=== PATIENT | female | born 1995 | race American Indian/Alaskan Native ===

== ENCOUNTER 2017-01-10 11:50 | Emergency (ER) | payer SELFPAY ==
[2017-01-10 12:29] VITALS: BP 126/75
[2017-01-10 14:06] LABS: Bilirubin,Urine NEG (Negative); Blood,Urine SM (Negative); Ketones,Urine NEG (Negative); Leukocyte Esterase,Urine MOD (Negative); Mucus,Urine FEW /HPF; Nitrite,Urine NEG (Negative); Protein,Urine <15 mg/dL mg/dL (Negative); Urobilinogen,Urine < 2.0 mg/dL (<2.0)
--- NOTE | 2017-01-10 14:11 | Emergency Department Report ---
ED Female HPI - General Chief complaint: Urogenital-Female Stated complaint: POSS UTI Time Seen by Provider: 01/10/17 13:44 Source: patient Mode of arrival: Ambulatory Limitations: No Limitations - History of Present Illness Initial comments: This is a 21-year-old female nontoxic, well nourished in appearance, no acute signs of distress presents to the ED complaining of urinary frequency and vaginal discharge. Patient describes vaginal discharge as white/clear. Patient denies any foul order. Patient denies any dysuria, polyuria, hematuria , nausea, vomiting, abdominal pain, pelvic pain, back pain, chest pain, shortness of breath, fever, chills, stiff neck or headache. Patient states she has had unprotected sex last week and then developed a vaginal discharge and is concerned about STD and wanted to be treated empirically. Patient denies any allergies or past medical history. MD Complaint: vaginal discharge, other (urinary frequency) -: Gradual Radiation: non-radiating Severity: mild Severity scale (0 -10): 0 Consistency: constant Worsens with: none Are you Now?: No Last Menstrual Period: 01/02/17 EDC: 10/09/17 Associated Symptoms: vaginal discharge. denies: vaginal bleeding, abdominal pain, nausea/vomiting, fever/chills, headaches, loss of appetite, dysuria, hematuria, rash, seizure, shortness of breath, syncope, weakness - Related Data Sexually active: Yes Previous Rx's Medication Instructions Recorded Last Taken Type Nitrofurantoin Monohyd/M-Cryst 100 mg PO BID #14 capsule 01/10/17 Unknown Rx [Macrobid 100 mg Capsule] metroNIDAZOLE [Flagyl] 500 mg PO Q12HR #14 tab 01/10/17 Unknown Rx Allergies Allergy/AdvReac Type Severity Reaction Status Date / Time No Known Allergies Allergy Unverified 01/10/17 12:29 ED Review of Systems ROS: Stated complaint: POSS UTI Other details as noted in HPI Constitutional: denies: chills, fever Eyes: denies: eye pain, eye discharge, vision change ENT: denies: ear pain, throat pain Respiratory: denies: cough, shortness of breath, wheezing Cardiovascular: denies: chest pain, palpitations Endocrine: no symptoms reported Gastrointestinal: denies: abdominal pain, nausea, diarrhea Genitourinary: frequency. denies: urgency, dysuria, discharge Musculoskeletal: denies: back pain, joint swelling, arthralgia Skin: denies: rash, lesions Neurological: denies: headache, weakness, paresthesias Psychiatric: denies: anxiety, depression Hematological/Lymphatic: denies: easy bleeding, easy bruising ED Past Medical Hx - Past Medical History Previous Medical History?: No - Surgical History Additional Surgical History: x2 - Social History Smoking Status: Never Smoker Substance Use Type: None - Medications Home Medications: Home Medications Medication Instructions Recorded Confirmed Last Taken Type Nitrofurantoin Monohyd/M-Cryst 100 mg PO BID #14 capsule 01/10/17 Unknown Rx [Macrobid 100 mg Capsule] metroNIDAZOLE [Flagyl] 500 mg PO Q12HR #14 tab 01/10/17 Unknown Rx ED Physical Exam - General Limitations: No Limitations General appearance: alert, in no apparent distress - Head Head exam: Present: atraumatic, normocephalic, normal inspection - Eye Eye exam: Present: normal appearance, PERRL, EOMI. Absent: scleral icterus, conjunctival injection, nystagmus, periorbital swelling, periorbital tenderness Pupils: Present: normal accommodation - ENT ENT exam: Present: normal exam, normal orophraynx, mucous membranes moist, TM's normal bilaterally, normal external ear exam - Neck Neck exam: Present: normal inspection, full ROM. Absent: tenderness, meningismus, lymphadenopathy, thyromegaly - Respiratory Respiratory exam: Present: normal lung sounds bilaterally. Absent: respiratory distress, wheezes, rales, rhonchi, stridor, chest wall tenderness, accessory muscle use, decreased breath sounds, prolonged expiratory - Cardiovascular Cardiovascular Exam: Present: regular rate, normal rhythm, normal heart sounds. Absent: bradycardia, tachycardia, irregular rhythm, systolic murmur, diastolic murmur, rubs, gallop - GI/Abdominal GI/Abdominal exam: Present: soft, normal bowel sounds. Absent: distended, tenderness, guarding, rebound, rigid, diminished bowel sounds - Rectal Rectal exam: Present: deferred - External exam: Present: normal external exam, other (assisted living home director Sintia deburrer machine present during exam). Absent: erythema, swelling, lesions, lacerations, ecchymosis, bleeding Speculum exam: Present: normal speculum exam, cervical discharge (white thick with no foul odor present), other (assisted living home director Sintia deburrer machine present during exam). Absent: erythema, vaginal discharge, vaginal bleeding, foreign body, tissue, laceration Bi-manual exam: Present: normal bi-manual exam, other (assisted living home director Sintia deburrer machine present during exam). Absent: cervical motion tendernes, adnexal tenderness, adnexal mass, uterine enlargement, uterine tenderness - Extremities Exam Extremities exam: Present: normal inspection, full ROM, normal capillary refill. Absent: tenderness, pedal edema, joint swelling, calf tenderness - Back Exam Back exam: Present: normal inspection, full ROM. Absent: tenderness, CVA tenderness (R), CVA tenderness (L), muscle spasm, paraspinal tenderness, vertebral tenderness, rash noted - Neurological Exam Neurological exam: Present: alert, oriented X3, CN II-XII intact, normal gait, reflexes normal - Psychiatric Psychiatric exam: Present: normal affect, normal mood - Skin Skin exam: Present: warm, dry, intact, normal color. Absent: rash ED Course Vital Signs 01/10/17 12:24 Temperature 98.3 F Pulse Rate 81 Respiratory 18 Rate Blood Pressure 126/75 O2 Sat by Pulse 98 Oximetry - Reevaluation(s) Reevaluation #1: 01/10/17 14:16 Patient is speaking in full sentences with no signs of distress noted. ED Medical Decision Making - Medical Decision Making This is a 21-year-old female that presents with UTI, bacterial vaginosis, and concerned about STD. Patient is stable and was evaluated by myself. Estimating Manager present during exam. Patient was instructed to return in 3 days for gonorrhea/ Chlamydia results. Patient received Rocephin and azithromycin in the ED this patient wanted empirical treatment. The patient be discharged with Macrobid and Flagyl. Patient was instructed to follow-up with a primary care doctor in 3- 5 days or if symptoms worsen and continue return to emergency room as soon as possible possible. Patient is hemodynamically stable with stable vital signs. Patient states he is feeling better. At time time of discharge, the patient does not seem toxic or ill in appearance. No acute signs of distress noted. Patient agrees to discharge treatment plan of care. No further questions noted by the patient. Patient was also instructed not to consume any alcohol while taking antibiotics. Critical care attestation.: If time is entered above; I have spent that time in minutes in the direct care of this critically ill patient, excluding procedure time. ED Disposition Clinical Impression: BV (bacterial vaginosis), Possible exposure to STD Urinary tract infection Qualifiers: Urinary tract infection type: site unspecified Hematuria presence: without hematuria Qualified Code(s): N39.0 - Urinary tract infection, site not specified Disposition: - TO HOME OR SELFCARE Is pt being admited?: No Does the pt Need Aspirin: No Condition: Stable Instructions: Bacterial Vaginosis (ED), Urinary Tract Infection in Women (ED), Nitrofurantoin Combination (By mouth), Metronidazole (By mouth), Safe Sex (ED) Additional Instructions: Follow-up with a primary care doctor in 3-5 days or if symptoms worsen and continue return to emergency room as soon as possible possible. Do not consume any alcohol while taking antibiotics especially Flagyl. Return in 3 days to medical records to obtain the results of gonorrhea and chlamydia. Prescriptions: metroNIDAZOLE [Flagyl] 500 mg PO Q12HR #14 tab Nitrofurantoin Monohyd/M-Cryst [Macrobid 100 mg Capsule] 100 mg PO BID #14 capsule Referrals: PRIMARY CAREMD [Primary Care Provider] - 3-5 Days RUBEN MOROCHO MD [Staff Physician] - 3-5 Days [facility] [Outside] - 3-[address] [facility] [Outside] - 3-5 Days Forms: STI Treatment and Prevention, Work/School Release Form(ED)
[2017-01-10] MEDS ORDERED: ROCEPHIN IM ONE (15:38)
[2017-01-10] MEDS ORDERED: XYLOCAINE 1% MPF 5 mL INFILTRATI ONE (15:38)
[2017-01-10] MEDS ORDERED: ZITHROMAX PO ONE (15:38)
== END 2017-01-10 16:36 | disposition home or self-care (01) ==
LOC: ED 11:50
DX: N39.0 Urinary tract infection, site not specified (principal); N76.0 Acute vaginitis
CPT/HCPCS: 81001; 81025; 87116; 87210; 87430; 87591; 96372; 99284; J0696

== ENCOUNTER 2017-06-07 08:10 | Emergency (ER) | payer MEDICAID ==
--- NOTE | 2017-06-07 10:27 | Emergency Department Report ---
ED Female HPI - General Chief complaint: Medical Clearance Stated complaint: UTI Time Seen by Provider: 06/07/17 10:09 Source: patient Mode of arrival: Ambulatory Limitations: No Limitations - History of Present Illness Initial comments: This is a 22-year-old female nontoxic, well nourished in appearance, no acute signs of distress presents to the ED with c/o of vaginal discharge x1 week. Patient stated she had a sexual intercourse 2 weeks ago unprotected and developed these symptoms. Patient describes vaginal discharge as yellow with foul odor. Patient denies any pelvic pain or back pain. Patient also stated has dysuria and polyuria with foul urine odor. Patient stated she is concerned about STD and wants to be tested and treated empirically. Patient denies any chest pain, shortness of breath, fever, chills, nausea, vomiting, abdominal pain. Patient denies any allergies or significant past medical history. MD Complaint: vaginal discharge, dysuria, possible STD -: week(s) (1) Radiation: non-radiating Severity: mild Severity scale (0 -10): 8 Quality: burning Consistency: constant Improves with: none Worsens with: urination Are you Now?: No Last Menstrual Period: 01/02/18 EDC: 10/09/18 Associated Symptoms: vaginal discharge, dysuria. denies: vaginal bleeding, abdominal pain, nausea/vomiting, fever/chills, headaches, loss of appetite, hematuria, rash, seizure, shortness of breath, syncope, weakness - Related Data Sexually active: Yes Previous Rx's Medication Instructions Recorded Last Taken Type Nitrofurantoin Monohyd/M-Cryst 100 mg PO BID #14 capsule 01/10/17 Unknown Rx [Macrobid 100 mg Capsule] metroNIDAZOLE [Flagyl] 500 mg PO Q12HR #14 tab 01/10/17 Unknown Rx Fluconazole [Diflucan TAB] 150 mg PO ONCE #2 tablet 06/07/17 Unknown Rx Sulfamethoxazole/Trimethoprim 1 each PO BID #14 tablet 06/07/17 Unknown Rx [Bactrim DS TAB] metroNIDAZOLE [Flagyl] 500 mg PO Q12HR #14 tab 06/07/17 Unknown Rx Allergies Allergy/AdvReac Type Severity Reaction Status Date / Time No Known Allergies Allergy Unverified 01/10/17 12:29 ED Review of Systems ROS: Stated complaint: UTI Other details as noted in HPI Constitutional: denies: chills, fever Eyes: denies: eye pain, eye discharge, vision change ENT: denies: ear pain, throat pain Respiratory: denies: cough, shortness of breath, wheezing Cardiovascular: denies: chest pain, palpitations Endocrine: no symptoms reported Gastrointestinal: denies: abdominal pain, nausea, diarrhea Genitourinary: urgency, dysuria, frequency, discharge Musculoskeletal: denies: back pain, joint swelling, arthralgia Skin: denies: rash, lesions Neurological: denies: headache, weakness, paresthesias Psychiatric: denies: anxiety, depression Hematological/Lymphatic: denies: easy bleeding, easy bruising ED Past Medical Hx - Past Medical History Additional medical history: c-sctions x2 - Surgical History Additional Surgical History: x2 - Social History Smoking Status: Never Smoker Substance Use Type: None - Medications Home Medications: Home Medications Medication Instructions Recorded Confirmed Last Taken Type Nitrofurantoin Monohyd/M-Cryst 100 mg PO BID #14 capsule 01/10/17 Unknown Rx [Macrobid 100 mg Capsule] metroNIDAZOLE [Flagyl] 500 mg PO Q12HR #14 tab 01/10/17 Unknown Rx Fluconazole [Diflucan TAB] 150 mg PO ONCE #2 tablet 06/07/17 Unknown Rx Sulfamethoxazole/Trimethoprim 1 each PO BID #14 tablet 06/07/17 Unknown Rx [Bactrim DS TAB] metroNIDAZOLE [Flagyl] 500 mg PO Q12HR #14 tab 06/07/17 Unknown Rx ED Physical Exam - General Limitations: No Limitations General appearance: alert, in no apparent distress - Head Head exam: Present: atraumatic, normocephalic - Eye Eye exam: Present: normal appearance, PERRL, EOMI Pupils: Present: normal accommodation - ENT ENT exam: Present: normal exam, normal orophraynx, mucous membranes moist, TM's normal bilaterally, normal external ear exam - Neck Neck exam: Present: normal inspection, full ROM. Absent: tenderness, meningismus, lymphadenopathy, thyromegaly - Respiratory Respiratory exam: Present: normal lung sounds bilaterally. Absent: respiratory distress, wheezes, rales, rhonchi, stridor, chest wall tenderness, accessory muscle use, decreased breath sounds, prolonged expiratory - Cardiovascular Cardiovascular Exam: Present: regular rate, normal rhythm, normal heart sounds. Absent: irregular rhythm, systolic murmur, diastolic murmur, rubs, gallop - GI/Abdominal GI/Abdominal exam: Present: soft, normal bowel sounds. Absent: distended, tenderness, guarding, rebound, rigid, diminished bowel sounds - Rectal Rectal exam: Present: deferred - External exam: Present: normal external exam, other (marlened Brian MORRIS present during exam). Absent: erythema, swelling, lesions, lacerations, ecchymosis, bleeding Speculum exam: Present: normal speculum exam, cervical discharge (white/green with foul odor), other (chaperoned Brian MORRIS present during exam). Absent: erythema, vaginal discharge, vaginal bleeding, foreign body, tissue, laceration Bi-manual exam: Present: normal bi-manual exam, other (chaperoned Brian MORRIS present during exam). Absent: cervical motion tendernes, adnexal tenderness, adnexal mass, uterine enlargement, uterine tenderness - Extremities Exam Extremities exam: Present: normal inspection, full ROM, normal capillary refill. Absent: tenderness, pedal edema, joint swelling, calf tenderness - Back Exam Back exam: Present: normal inspection, full ROM. Absent: tenderness, CVA tenderness (R), CVA tenderness (L), muscle spasm, paraspinal tenderness, vertebral tenderness, rash noted - Neurological Exam Neurological exam: Present: alert, oriented X3, CN II-XII intact, normal gait, reflexes normal - Psychiatric Psychiatric exam: Present: normal affect, normal mood - Skin Skin exam: Present: warm, dry, intact, normal color. Absent: rash ED Course Vital Signs 06/07/17 09:03 Temperature 97.8 F Pulse Rate 91 H Blood Pressure 107/67 O2 Sat by Pulse 97 Oximetry - Reevaluation(s) Reevaluation #1: 06/07/17 10:31 Patient is speaking in full sentences with no signs of distress noted. ED Medical Decision Making - Medical Decision Making This is a 22-year-old female that presents with possible STD, UTI, BV, and yeast. Patient is stable and was exained by me. UA obtained. Wet prep obtained. GC pending. Patient was instructed to return in 3-5 days for GC results. Patient received Rocephine and Azithromycin in the ED as she stated she wants to be treated empirically. Patient was also instructed to Follow-up with a primary care doctor in 3-5 days or if symptoms worsen and continue return to emergency room as soon as possible. At time of discharge, the patient does not seem toxic or ill in appearance. No acute signs of distress noted. Patient agrees to discharge treatment plan of care. No further questions noted by the patient. Critical care attestation.: If time is entered above; I have spent that time in minutes in the direct care of this critically ill patient, excluding procedure time. ED Disposition Clinical Impression: Possible exposure to STD, Vaginal yeast infection, Bacterial vaginosis UTI (urinary tract infection) Qualifiers: Urinary tract infection type: site unspecified Hematuria presence: with hematuria Qualified Code(s): N39.0 - Urinary tract infection, site not specified ; R31.9 - Hematuria, unspecified Disposition: TO HOME OR SELFCARE Is pt being admited?: No Does the pt Need Aspirin: No Condition: Stable Instructions: Safe Sex (ED), Bacterial Vaginosis (ED), Urinary Tract Infection in Children (ED), Vulvovaginal Candidiasis (ED) Additional Instructions: Follow-up with a primary care doctor in 3-5 days or if symptoms worsen and continue return to emergency room as soon as possible. Return in 3 days to obtain results of gonorrhea chlamydia. Do not consume any alcohol while taking antibiotics. Prescriptions: Fluconazole [Diflucan TAB] 150 mg PO ONCE #2 tablet metroNIDAZOLE [Flagyl] 500 mg PO Q12HR #14 tab Sulfamethoxazole/Trimethoprim [Bactrim DS TAB] 1 each PO BID #14 tablet Referrals: PRIMARY CAREMD [Primary Care Provider] - 3-5 Days ARJUN JORDAN MD [Staff Physician] - 3-5 Days [facility] [Outside] - 3-5 Days [facility] [Outside] - 3-5 Days Forms: Work/School Release Form(ED), STI Treatment and Prevention
[2017-06-07 12:08] LABS: Bacteria,Urine 3+ /HPF (Negative); Bilirubin,Urine NEG (Negative); Blood,Urine SM (Negative); Color,Urine Yellow (Yellow); Mucus,Urine FEW /HPF; Urobilinogen,Urine < 2.0 mg/dL (<2.0)
[2017-06-07] MEDS ORDERED: ROCEPHIN IM ONE (12:43)
[2017-06-07] MEDS ORDERED: ZITHROMAX PO ONE (12:43)
[2017-06-07] MEDS ORDERED: XYLOCAINE 1% MPF 5 mL INFILTRATI ONE (12:43)
[2017-06-07 13:00] LABS: HCG Qualitative,Urine Negative (Negative)
[2017-06-07 13:27] VITALS: BP 108/66
== END 2017-06-07 13:26 | disposition home or self-care (01) ==
LOC: ED 08:10
DX: N39.0 Urinary tract infection, site not specified (principal); N76.0 Acute vaginitis; B37.3 Candidiasis of vulva and vagina
CPT/HCPCS: 81001; 81025; 87086; 87210; 87591; 96372; 99284; J0696

== ENCOUNTER 2017-08-19 06:26 | Emergency (ER) | payer MEDICAID ==
[2017-08-19 06:59] VITALS: BP 117/68
--- NOTE | 2017-08-19 07:50 | Emergency Department Report ---
ED Female HPI - General Chief complaint: Urogenital-Female Stated complaint: VAG DISCOMFORT Time Seen by Provider: 08/19/17 07:30 Source: patient Mode of arrival: Ambulatory Limitations: No Limitations - History of Present Illness Initial comments: 22-year-old female past medical history STDs presents with complaint of one week of dysuria and vaginal discharge. States she also has increased urinary frequency. Patient is concerned she may have been exposed to chlamydia. Awake alert and oriented 3 denies fevers chills nausea or vomiting. States she has whitish vaginal discharge. MD Complaint: vaginal discharge, dysuria, possible STD Onset/Timin -: week(s) Are you Now?: No Last Menstrual Period: 07/07/17 EDC: 04/13/18 Associated Symptoms: vaginal discharge - Related Data Sexually active: Yes Previous Rx's Medication Instructions Recorded Last Taken Type Nitrofurantoin Monohyd/M-Cryst 100 mg PO BID #14 capsule 01/10/17 Unknown Rx [Macrobid 100 mg Capsule] metroNIDAZOLE [Flagyl] 500 mg PO Q12HR #14 tab 01/10/17 Unknown Rx Fluconazole [Diflucan TAB] 150 mg PO ONCE #2 tablet 06/07/17 Unknown Rx Sulfamethoxazole/Trimethoprim 1 each PO BID #14 tablet 06/07/17 Unknown Rx [Bactrim DS TAB] metroNIDAZOLE [Flagyl] 500 mg PO Q12HR #14 tab 06/07/17 Unknown Rx Sulfamethoxazole/Trimethoprim 1 each PO BID #6 tablet 08/19/17 Unknown Rx [Bactrim DS TAB] Allergies Allergy/AdvReac Type Severity Reaction Status Date / Time No Known Allergies Allergy Unverified 01/10/17 12:29 ED Review of Systems ROS: Stated complaint: VAG DISCOMFORT Other details as noted in HPI Constitutional: denies: chills, fever Eyes: denies: eye pain, eye discharge, vision change ENT: denies: ear pain, throat pain Respiratory: denies: cough, shortness of breath, wheezing Cardiovascular: denies: chest pain, palpitations Endocrine: no symptoms reported Gastrointestinal: denies: abdominal pain, nausea, diarrhea Genitourinary: as per HPI, frequency, discharge. denies: urgency, dysuria Musculoskeletal: denies: back pain, joint swelling, arthralgia Skin: denies: rash, lesions Neurological: denies: headache, weakness, paresthesias Psychiatric: denies: anxiety, depression Hematological/Lymphatic: denies: easy bleeding, easy bruising ED Past Medical Hx - Past Medical History Previous Medical History?: Yes Additional medical history: c-sctions x2 - Surgical History Past Surgical History?: Yes Additional Surgical History: x2 - Social History Smoking Status: Never Smoker Substance Use Type: None - Medications Home Medications: Home Medications Medication Instructions Recorded Confirmed Last Taken Type Nitrofurantoin Monohyd/M-Cryst 100 mg PO BID #14 capsule 01/10/17 Unknown Rx [Macrobid 100 mg Capsule] metroNIDAZOLE [Flagyl] 500 mg PO Q12HR #14 tab 01/10/17 Unknown Rx Fluconazole [Diflucan TAB] 150 mg PO ONCE #2 tablet 06/07/17 Unknown Rx Sulfamethoxazole/Trimethoprim 1 each PO BID #14 tablet 06/07/17 Unknown Rx [Bactrim DS TAB] metroNIDAZOLE [Flagyl] 500 mg PO Q12HR #14 tab 06/07/17 Unknown Rx Sulfamethoxazole/Trimethoprim 1 each PO BID #6 tablet 08/19/17 Unknown Rx [Bactrim DS TAB] ED Physical Exam - General Limitations: No Limitations General appearance: alert, in no apparent distress - Head Head exam: Present: atraumatic, normocephalic - Eye Eye exam: Present: normal appearance - ENT ENT exam: Present: mucous membranes moist - Neck Neck exam: Present: normal inspection - Respiratory Respiratory exam: Present: normal lung sounds bilaterally. Absent: respiratory distress - Cardiovascular Cardiovascular Exam: Present: regular rate, normal rhythm. Absent: systolic murmur, diastolic murmur, rubs, gallop - GI/Abdominal GI/Abdominal exam: Present: soft, normal bowel sounds - Extremities Exam Extremities exam: Present: normal inspection - Back Exam Back exam: Present: normal inspection - Neurological Exam Neurological exam: Present: alert, oriented X3 - Psychiatric Psychiatric exam: Present: normal affect, normal mood - Skin Skin exam: Present: warm, dry, intact, normal color. Absent: rash ED Course Vital Signs 08/19/17 06:43 Temperature 98.7 F Pulse Rate 77 Respiratory 18 Rate Blood Pressure 117/68 O2 Sat by Pulse 98 Oximetry ED Medical Decision Making - Medical Decision Making A/P: Urethritis/cervicitis 1-patient empirically treated with azithromycin and ceftriaxone 2-GC cultures sent, urine cutlure sent 3-patient given follow-up with primary care/[facility] Critical care attestation.: If time is entered above; I have spent that time in minutes in the direct care of this critically ill patient, excluding procedure time. ED Disposition Clinical Impression: Vaginal discharge, Urethritis Disposition: DC-01 TO HOME OR SELFCARE Is pt being admited?: No Does the pt Need Aspirin: No Condition: Stable Instructions: Urinary Tract Infection in Women (ED), Gonococcal Urethritis (ED) Prescriptions: Sulfamethoxazole/Trimethoprim [Bactrim DS TAB] 1 each PO BID #6 tablet Referrals: [facility] [Provider Group] - 3-5 Days [facility] [Outside] - 3-5 Days [facility] [Provider Group] - 3-5 Days Forms: STI Treatment and Prevention, Work/School Release Form(ED) Time of Disposition: 09:09
[2017-08-19] MEDS ORDERED: XYLOCAINE 1% MPF 5 mL INFILTRATI ONE (07:55)
[2017-08-19] MEDS ORDERED: ROCEPHIN IM ONE (07:55)
[2017-08-19] MEDS ORDERED: ZITHROMAX PO ONE (07:56)
[2017-08-19] MEDS ORDERED: ZOFRAN ODT PO ONE (08:03)
[2017-08-19 09:00] LABS: Bacteria,Urine 2+ /HPF (Negative); Bilirubin,Urine NEG (Negative); Blood,Urine NEG (Negative); Color,Urine Amber (Yellow); Mucus,Urine 3+ /HPF; Urobilinogen,Urine < 2.0 mg/dL (<2.0)
[2017-08-19 09:17] LABS: HCG Qualitative,Urine Negative (Negative)
== END 2017-08-19 09:23 | disposition home or self-care (01) ==
LOC: ED 06:26
DX: N34.2 Other urethritis (principal); N89.8 Other specified noninflammatory disorders of vagina
CPT/HCPCS: 81001; 81025; 87086; 87210; 87591; 96372; 99283; J0696; Q0162

== ENCOUNTER 2017-10-06 13:08 | Emergency (ER) | payer MEDICAID ==
[2017-10-06 13:24] VITALS: BP 108/62
[2017-10-06 14:40] LABS: Bacteria,Urine 2+ /HPF (Negative); Bilirubin,Urine NEG (Negative); Blood,Urine SM (Negative); Color,Urine Yellow (Yellow); Mucus,Urine 2+ /HPF; Protein,Urine <15 mg/dL mg/dL (Negative); Sperm,Urine 1+ /HPF (NP)
[2017-10-06 14:43] LABS: HCG Qualitative,Urine Negative (Negative)
[2017-10-06] MEDS ORDERED: XYLOCAINE 1% MPF 5 mL INFILTRATI ONE (15:40)
[2017-10-06] MEDS ORDERED: FLAGYL PO ONE (15:40)
[2017-10-06] MEDS ORDERED: ROCEPHIN IM ONE (15:40)
[2017-10-06] MEDS ORDERED: ZOFRAN ODT PO ONE (15:40)
[2017-10-06] MEDS ORDERED: ZITHROMAX PO ONE (15:40)
--- NOTE | 2017-10-06 15:40 | Emergency Department Report ---
ED Abdominal Pain HPI - General Chief Complaint: Urogenital-Female Stated Complaint: UTI/STD Time Seen by Provider: 10/06/17 15:17 Source: patient Mode of arrival: Ambulatory Limitations: No Limitations - History of Present Illness Initial Comments: Patient is a 22-year-old female who is presenting with suprapubic discomfort. Patient also has some dysuria and vaginal discharge. Symptoms been present for approximately 2 weeks. Patient states that she has not had any nausea vomiting diarrhea. Patient states the pain is 5 out of 10 in severity. - Related Data Previous Rx's Medication Instructions Recorded Last Taken Type Nitrofurantoin Monohyd/M-Cryst 100 mg PO BID #14 capsule 01/10/17 Unknown Rx [Macrobid 100 mg Capsule] metroNIDAZOLE [Flagyl] 500 mg PO Q12HR #14 tab 01/10/17 Unknown Rx Fluconazole [Diflucan TAB] 150 mg PO ONCE #2 tablet 06/07/17 Unknown Rx Sulfamethoxazole/Trimethoprim 1 each PO BID #14 tablet 06/07/17 Unknown Rx [Bactrim DS TAB] metroNIDAZOLE [Flagyl] 500 mg PO Q12HR #14 tab 06/07/17 Unknown Rx Sulfamethoxazole/Trimethoprim 1 each PO BID #6 tablet 08/19/17 Unknown Rx [Bactrim DS TAB] Allergies Allergy/AdvReac Type Severity Reaction Status Date / Time No Known Allergies Allergy Verified 10/06/17 13:21 ED Review of Systems ROS: Stated complaint: UTI/STD Other details as noted in HPI Comment: All other systems reviewed and negative ED Past Medical Hx - Past Medical History Previous Medical History?: No Additional medical history: c-sctions x2 - Surgical History Past Surgical History?: Yes Additional Surgical History: x2 - Social History Smoking Status: Never Smoker Substance Use Type: None - Medications Home Medications: Home Medications Medication Instructions Recorded Confirmed Last Taken Type Nitrofurantoin Monohyd/M-Cryst 100 mg PO BID #14 capsule 01/10/17 Unknown Rx [Macrobid 100 mg Capsule] metroNIDAZOLE [Flagyl] 500 mg PO Q12HR #14 tab 01/10/17 Unknown Rx Fluconazole [Diflucan TAB] 150 mg PO ONCE #2 tablet 06/07/17 Unknown Rx Sulfamethoxazole/Trimethoprim 1 each PO BID #14 tablet 06/07/17 Unknown Rx [Bactrim DS TAB] metroNIDAZOLE [Flagyl] 500 mg PO Q12HR #14 tab 06/07/17 Unknown Rx Sulfamethoxazole/Trimethoprim 1 each PO BID #6 tablet 08/19/17 Unknown Rx [Bactrim DS TAB] ED Physical Exam - General Limitations: No Limitations General appearance: alert, in no apparent distress - Head Head exam: Present: atraumatic, normocephalic - Eye Eye exam: Present: normal appearance - ENT ENT exam: Present: mucous membranes moist - Neck Neck exam: Present: normal inspection - Respiratory Respiratory exam: Present: normal lung sounds bilaterally. Absent: respiratory distress, wheezes, rales - Cardiovascular Cardiovascular Exam: Present: regular rate, normal rhythm. Absent: systolic murmur, diastolic murmur, rubs, gallop - GI/Abdominal GI/Abdominal exam: Present: soft, tenderness (mild suprapubic), normal bowel sounds. Absent: distended, guarding, rebound - Extremities Exam Extremities exam: Present: normal inspection - Back Exam Back exam: Present: normal inspection - Neurological Exam Neurological exam: Present: alert, oriented X3 - Psychiatric Psychiatric exam: Present: normal affect, normal mood - Skin Skin exam: Present: warm, dry, intact, normal color. Absent: rash ED Course Vital Signs 10/06/17 13:21 Temperature 98.7 F Pulse Rate 75 Respiratory 18 Rate Blood Pressure 108/62 O2 Sat by Pulse 99 Oximetry ED Medical Decision Making - Medical Decision Making Patient's urinalysis was not consistent with a urinary tract infection. Patient most likely has a vaginosis/vaginitis causing her symptoms and patient will be treated empirically so the patient does not develop PID Critical care attestation.: If time is entered above; I have spent that time in minutes in the direct care of this critically ill patient, excluding procedure time. ED Disposition Clinical Impression: Vaginitis Qualifiers: Chronicity: acute Qualified Code(s): N76.0 - Acute vaginitis Disposition: - TO HOME OR SELFCARE Is pt being admited?: No Does the pt Need Aspirin: No Condition: Stable Referrals: [facility] [Outside] - 3-5 Days
[2017-10-06] MEDS ORDERED: DIFLUCAN PO ONE (15:41)
== END 2017-10-06 15:57 | disposition home or self-care (01) ==
LOC: ED 13:08
DX: N76.0 Acute vaginitis (principal)
CPT/HCPCS: 81001; 81025; 99283; J0696; Q0162

== ENCOUNTER 2018-10-15 09:46 | Emergency (ER) | payer MEDICAID ==
[2018-10-15 09:53] VITALS: BP 125/77
--- NOTE | 2018-10-15 10:44 | Emergency Department Report ---
HPI - General Chief Complaint: Urogenital-Female Time Seen by Provider: 10/15/18 10:24 - HPI HPI: 23-year-old [place] female presents to the emergency department with a complaint of some burning with urination and some recent vaginal discharge. She has a history of bacterial vaginosis in the past and says "I know when I have an infection." The patient was recently at [facility] for the same symptoms and says that she had an indeterminate test at that time that showed a beta hCG of 18.5 and therefore she was told that she could not receive the treatment for her infections. She denies any vaginal bleeding or any pelvic or abdominal pains. ED Past Medical Hx - Past Medical History Previous Medical History?: Yes Additional medical history: c-sctions x2 - Surgical History Past Surgical History?: Yes Additional Surgical History: x2 - Social History Smoking Status: Never Smoker Substance Use Type: Alcohol - Medications Home Medications: Home Medications Medication Instructions Recorded Confirmed Last Taken Type Nitrofurantoin Monohyd/M-Cryst 100 mg PO BID #14 capsule 01/10/17 Unknown Rx [Macrobid 100 mg Capsule] metroNIDAZOLE [Flagyl] 500 mg PO Q12HR #14 tab 01/10/17 Unknown Rx Fluconazole [Diflucan TAB] 150 mg PO ONCE #2 tablet 06/07/17 Unknown Rx Sulfamethoxazole/Trimethoprim 1 each PO BID #14 tablet 06/07/17 Unknown Rx [Bactrim DS TAB] metroNIDAZOLE [Flagyl] 500 mg PO Q12HR #14 tab 06/07/17 Unknown Rx Sulfamethoxazole/Trimethoprim 1 each PO BID #6 tablet 08/19/17 Unknown Rx [Bactrim DS TAB] Clindamycin 2% [Clindamycin 2% VAG 1 applicatio VG QHS 7 Days cream 10/15/18 Unknown Rx CREAM] Vit-Fe Fumar-FA [ 1 tab PO QDAY #30 tablet 10/15/18 Unknown Rx Vitamin] ED Review of Systems ROS: Stated complaint: NO PERIOD Other details as noted in HPI Comment: All other systems reviewed and negative Constitutional: denies: chills, fever Gastrointestinal: denies: abdominal pain, vomiting Genitourinary: dysuria, discharge. denies: hematuria Musculoskeletal: denies: back pain, arthralgia Skin: denies: rash, lesions Physical Exam - Physical Exam Vital Signs: Vital Signs 10/15/18 09:49 Temperature 98.5 F Pulse Rate 78 Respiratory 18 Rate Blood Pressure 125/77 O2 Sat by Pulse 99 Oximetry Physical Exam: GENERAL: The patient is well-developed well-nourished. HENT: Normocephalic. Atraumatic. Patient has moist mucous membranes. EYES: Extraocular motions are intact. NECK: Supple. Trachea is midline. CHEST/LUNGS: Clear to auscultation. There is no respiratory distress noted. HEART/CARDIOVASCULAR: Regular. There is no tachycardia. There is no murmur. ABDOMEN: Abdomen is soft, nontender. Patient has normal bowel sounds. There is no abdominal distention. SKIN: Skin is warm and dry. NEURO: The patient is awake, alert, and oriented. The patient is cooperative. The patient has normal speech. MUSCULOSKELETAL: There is no tenderness or deformity. There is no evidence of acute injury. ED Course Vital Signs 10/15/18 09:49 Temperature 98.5 F Pulse Rate 78 Respiratory 18 Rate Blood Pressure 125/77 O2 Sat by Pulse 99 Oximetry ED Medical Decision Making - Medical Decision Making This patient presents to the emergency department with the complaint of having had a positive bacterial vaginosis test at [facility] but then having a indeterminate or equivocal quantitative test.the urinalysis was not impressive for any significant urinary tract infection as there was only 10 white blood cells in the urine and negative for nitrites. However her beta hCG was up at about 580. This means that it has been increasing from 18 that was seen at [facility] and the patient is . She will be treated for her recent PV infection with clindamycin vaginal cream/gel. She has been given a prescription for vitamins. She has been given a referral for [facility]. She will return to the emergency Department with any worsening of her symptoms or any acute distress. - Differential Diagnosis , BV, miscarriage, UTI Critical Care Time: No Critical care attestation.: If time is entered above; I have spent that time in minutes in the direct care of this critically ill patient, excluding procedure time. ED Disposition Clinical Impression: Vaginal discharge Qualifiers: Weeks of gestation: less than 8 weeks Qualified Code(s): Z3A.01 - Less than 8 weeks gestation of Disposition: -01 TO HOME OR SELFCARE Is pt being admited?: No Condition: Stable Instructions: (ED), Bacterial Vaginosis (ED) Additional Instructions: Please follow up with an [facility] in the next few days. I'm starting you on vitamins. Return to the emergency department immediately with any pelvic or abdominal pain, or with any acute distress. I'm also giving you a prescription for clindamycin vaginal cream for treatment of your BV. Prescriptions: Clindamycin 2% [Clindamycin 2% VAG CREAM] 1 applicatio VG QHS 7 Days cream Vit-Fe Fumar-FA [ Vitamin] 1 tab PO QDAY #30 tablet Referrals: [facility] [Provider Group] - 3-5 Days [facility] [Provider Group] - 3-5 Days [facility] [Provider Group] - 3-5 Days Time of Disposition: 11:33
[2018-10-15 10:52] LABS: Bacteria,Urine 1+ /HPF (Negative); Bilirubin,Urine NEG (Negative); Blood,Urine SM (Negative); Color,Urine Yellow (Yellow); Mucus,Urine 3+ /HPF; Protein,Urine <15 mg/dL mg/dL (Negative)
== END 2018-10-15 11:37 | disposition home or self-care (01) ==
LOC: ED 09:46
DX: O26.891 Other specified pregnancy related conditions, first trimester (principal); R30.0 Dysuria; N89.8 Other specified noninflammatory disorders of vagina; Z3A.01 Less than 8 weeks gestation of pregnancy
CPT/HCPCS: 36415; 81001; 84702; 87086; 99283

== ENCOUNTER 2018-10-18 21:37 | Emergency (ER) | payer MEDICAID ==
--- NOTE | 2018-10-18 21:58 | Event Note ---
ED Screening Note ED Screening Note: inc vag bleed in preg did not follow up since last ed visit This initial assessment/diagnostic orders/clinical plan/treatment(s) is/are subject to change based on patients health status, clinical progression and re- assessment by fellow clinical providers in the ED. Further treatment and workup at subsequent clinical providers discretion. Patient/guardian urged not to elope from the ED as their condition may be serious if not clinically assessed and managed. Initial orders include: labs
[2018-10-18 22:00] VITALS: BP 115/57
[2018-10-18 22:56] LABS: Hematocrit 34.5 % (30.3-42.9); Hemoglobin 11.9 gm/dl (10.1-14.3); Mean Corpuscular HGB Conc 35 % (30-34); Mean Corpuscular Volume 93 fl (79-97); Platelet Count 337 K/mm3 (140-440); Red Blood Count 3.73 M/mm3 (3.65-5.03); Red Cell Distribution Width 14.1 % (13.2-15.2)
[2018-10-18 23:08] LABS: Bilirubin,Urine NEG (Negative); Blood,Urine SM (Negative); Color,Urine Yellow (Yellow); Mucus,Urine 2+ /HPF; Protein,Urine <15 mg/dL mg/dL (Negative)
[2018-10-19] MEDS ORDERED: TYLENOL PO ONE ×2 (01:00→06:07)
[2018-10-19] MEDS ORDERED: ZOFRAN IV ONE (01:00)
[2018-10-19] MEDS ORDERED: NACL 0.9% 1000 ML 1,000 ML IV ONE (01:00)
--- NOTE | 2018-10-19 02:23 | Emergency Department Report ---
ED Female HPI - General Chief complaint: Vaginal Bleeding Stated complaint: BLEEDING WITH BLOODCLOTS Time Seen by Provider: 10/18/18 21:50 Source: patient Mode of arrival: Ambulatory Limitations: No Limitations - History of Present Illness Initial comments: Patient is a 23-year-old -Citizen Of [place] female A0 who presents with vaginal spotting 2 days patient's 10/15/18 tightness a positive patient presented intake with [facility] states spotting started 2 days ago patient using one pad daily last spotting was this a.m. last menstrual period was 10 weeks ago patient states that think I'm having a miscarriage Complaint: vaginal bleeding Onset/Timin -: days(s) Radiation: suprapubic Severity: moderate Severity scale (0 -10): 5 Quality: cramping Consistency: constant Improves with: none Worsens with: none Are you Now?: Yes Last Menstrual Period: 08/14/18 EDC: 05/21/19 Associated Symptoms: vaginal bleeding - Related Data Sexually active: Yes : 3 Para: 2 A: 0 Previous Rx's Medication Instructions Recorded Last Taken Type Nitrofurantoin Monohyd/M-Cryst 100 mg PO BID #14 capsule 01/10/17 Unknown Rx [Macrobid 100 mg Capsule] metroNIDAZOLE [Flagyl] 500 mg PO Q12HR #14 tab 01/10/17 Unknown Rx Fluconazole [Diflucan TAB] 150 mg PO ONCE #2 tablet 06/07/17 Unknown Rx Sulfamethoxazole/Trimethoprim 1 each PO BID #14 tablet 06/07/17 Unknown Rx [Bactrim DS TAB] metroNIDAZOLE [Flagyl] 500 mg PO Q12HR #14 tab 06/07/17 Unknown Rx Sulfamethoxazole/Trimethoprim 1 each PO BID #6 tablet 08/19/17 Unknown Rx [Bactrim DS TAB] Clindamycin 2% [Clindamycin 2% VAG 1 applicatio VG QHS 7 Days cream 10/15/18 Unknown Rx CREAM] Vit-Fe Fumar-FA [ 1 tab PO QDAY #30 tablet 10/15/18 Unknown Rx Vitamin] Acetaminophen [Acetaminophen TAB] 1,000 mg PO Q6HR PRN #30 tablet 10/19/18 Unknown Rx Allergies Allergy/AdvReac Type Severity Reaction Status Date / Time No Known Allergies Allergy Verified 10/06/17 15:42 ED Review of Systems ROS: Stated complaint: BLEEDING WITH BLOODCLOTS Other details as noted in HPI Constitutional: denies: chills, fever Eyes: denies: eye pain, eye discharge, vision change ENT: denies: ear pain, throat pain Respiratory: denies: cough, shortness of breath, wheezing Cardiovascular: denies: chest pain, palpitations Endocrine: no symptoms reported Gastrointestinal: abdominal pain. denies: nausea, vomiting, diarrhea, constipation, hematemesis, melena, hematochezia Genitourinary: denies: urgency, dysuria, frequency, hematuria, discharge, dyspareunia Musculoskeletal: denies: back pain, joint swelling, arthralgia Skin: denies: rash, lesions Neurological: denies: headache, weakness, paresthesias Psychiatric: denies: anxiety, depression Hematological/Lymphatic: denies: easy bleeding, easy bruising ED Past Medical Hx - Past Medical History Previous Medical History?: No Additional medical history: c-sctions x2 - Surgical History Past Surgical History?: Yes Additional Surgical History: x2 - Social History Smoking Status: Never Smoker Substance Use Type: None - Medications Home Medications: Home Medications Medication Instructions Recorded Confirmed Last Taken Type Nitrofurantoin Monohyd/M-Cryst 100 mg PO BID #14 capsule 01/10/17 Unknown Rx [Macrobid 100 mg Capsule] metroNIDAZOLE [Flagyl] 500 mg PO Q12HR #14 tab 01/10/17 Unknown Rx Fluconazole [Diflucan TAB] 150 mg PO ONCE #2 tablet 06/07/17 Unknown Rx Sulfamethoxazole/Trimethoprim 1 each PO BID #14 tablet 06/07/17 Unknown Rx [Bactrim DS TAB] metroNIDAZOLE [Flagyl] 500 mg PO Q12HR #14 tab 06/07/17 Unknown Rx Sulfamethoxazole/Trimethoprim 1 each PO BID #6 tablet 08/19/17 Unknown Rx [Bactrim DS TAB] Clindamycin 2% [Clindamycin 2% VAG 1 applicatio VG QHS 7 Days cream 10/15/18 Unknown Rx CREAM] Vit-Fe Fumar-FA [ 1 tab PO QDAY #30 tablet 10/15/18 Unknown Rx Vitamin] Acetaminophen [Acetaminophen TAB] 1,000 mg PO Q6HR PRN #30 tablet 10/19/18 Unknown Rx ED Physical Exam - General Limitations: No Limitations General appearance: alert, in no apparent distress - Head Head exam: Present: atraumatic, normocephalic - Eye Eye exam: Present: normal appearance, PERRL, EOMI Pupils: Present: normal accommodation - ENT ENT exam: Present: mucous membranes moist - Neck Neck exam: Present: normal inspection, full ROM. Absent: tenderness, lymphadenopathy - Respiratory Respiratory exam: Present: normal lung sounds bilaterally. Absent: respiratory distress, wheezes, stridor, chest wall tenderness - Cardiovascular Cardiovascular Exam: Present: regular rate, normal rhythm, normal heart sounds. Absent: systolic murmur, diastolic murmur, rubs, gallop - GI/Abdominal GI/Abdominal exam: Present: soft, normal bowel sounds. Absent: distended, tenderness, guarding, rebound, rigid, bruit, hernia - Rectal Rectal exam: Present: deferred - External exam: Present: other (exam deferred by pt ) - Extremities Exam Extremities exam: Present: normal inspection, full ROM, normal capillary refill. Absent: tenderness - Back Exam Back exam: Present: normal inspection, full ROM. Absent: tenderness, CVA tenderness (R), CVA tenderness (L), muscle spasm, paraspinal tenderness, rash noted - Neurological Exam Neurological exam: Present: alert, oriented X3, CN II-XII intact, normal gait, reflexes normal. Absent: motor sensory deficit - Psychiatric Psychiatric exam: Present: normal affect, normal mood - Skin Skin exam: Present: warm, dry, intact, normal color. Absent: rash ED Course Vital Signs 10/18/18 10/19/18 21:57 01:30 Temperature 98.3 F Pulse Rate 86 Respiratory 18 18 Rate Blood Pressure 115/57 O2 Sat by Pulse 98 Oximetry ED Medical Decision Making - Lab Data Result diagrams: 10/18/18 22:17 - Radiology Data Radiology results: report reviewed, image reviewed no IUP noted - Medical Decision Making US OB no IUP noted this is likely miscarriage, plan follow up with OBGYN in 1-2 days , tylenol prn pain, discussed same with patient , patient verbalized agreement and understanding of discharge plan. Critical care attestation.: If time is entered above; I have spent that time in minutes in the direct care of this critically ill patient, excluding procedure time. ED Disposition Clinical Impression: Threatened miscarriage in early Disposition: DC-01 TO HOME OR SELFCARE Is pt being admited?: No Does the pt Need Aspirin: No Condition: Stable Instructions: Threatened Miscarriage (ED) Prescriptions: Acetaminophen [Acetaminophen TAB] 1,000 mg PO Q6HR PRN #30 tablet PRN Reason: Pain , Severe (7-10) Referrals: KELY VIDAL MD [Staff Physician] - 3-5 Days Forms: Work/School Release Form(ED) Time of Disposition: 05:41
[2018-10-19] MEDS ORDERED: BENTYL IM ONE ×2 (05:54→05:56)
[2018-10-19] MEDS ORDERED: TYLENOL ONE (05:56)
--- NOTE | 2018-10-26 15:07 | Ultrasound Report ---
US OB transvaginal, US OB <= 14 weeks fetus INDICATION / CLINICAL INFORMATION: abd pain. COMPARISON: None available. FINDINGS: Uterus measures 10.5 cm. Endometrial stripe thickness is 16 mm. No evidence of intrauterine gestation al sac. The ovaries are normal. Doppler imaging shows normal ovarian blood flow. No fluid collections are identified in the cul-de-sac. IMPRESSION: 1. No evidence of intrauterine . Signer Name: Lobito De Los Santos MD Signed: 10/19/2018 3:24 AM Workstation Name: [employer]
== END 2018-10-19 06:09 | disposition home or self-care (01) ==
LOC: ED 21:37
DX: O20.0 Threatened abortion (principal); Z79.899 Other long term (current) drug therapy; Z3A.10 10 weeks gestation of pregnancy
CPT/HCPCS: 36415; 76801; 76817; 81001; 84702; 85027; 86900; 86901; 96372; 96374; 99284; J0500; J2405; J7030; 96361